=== PATIENT | male | born 1960 | race Caucasian/White ===

== ENCOUNTER 2017-11-13 17:14 | Observation (INO) | payer OTHER ==
[~2017-11-13] VITALS: Ht 182.9 cm; Wt 81.6 kg
[~2017-11-13 17:14] MED LIST: AMOXICILLIN875 MG PO; AUGMENTIN 875-1 EACH PO; CORTISPORIN-TC10 ML AD; FIORICET 325 MG1 TAB PO; MOTRIN600 MG PO
--- NOTE | 2017-11-13 20:06 | ED GI/GU/ABDOMINAL COMPLAINT ---
History of Present Illness General Chief Complaint: General Adult Stated Complaint: RIGHT SIDE PAIN SINCE YESTERDAY Source: patient Exam Limitations: language barrier Vital Signs & Intake/Output Vital Signs & Intake/Output Vital Signs Date Time Temp Pulse Resp B/P B/P Pulse O2 O2 Flow FiO2 Mean Ox Delivery Rate 11/14 2043 Room Air 11/13 1736 97.1 84 18 96 Room Air Allergies Coded Allergies: NO KNOWN ALLERGIES (10/16/15) Triage Note: 57M AMHARIC AND SUDANESE SPEAKING ONLY, REQUIRES TRANSLATION, SEEKING EVAL FOR RLQ AND ABDOMINAL PAIN SINCE LAST NIGHT WITH TWO EPISODES OF VOMITING, DENIES DIARRHEA, AND INTERMITTENT HEADACHES. AFEBRILE. -CP/SOB/PALP. REPORTS EATING GU[place]EMALAN FOOD PRIOR TO ONSET OF SYMPTOMS Triage Nurses Notes Reviewed? yes Onset: Gradual Duration: constant Timing: recent history Severity Numbers: 7 HPI: Patient is a 57-year-old male with a unremarkable past medical history who is an Ecuadorean speaking only which history is limited however it is noted by triage nurse that the son who is initially present with patient however he is gone has concerns of a gradual onset of right lower quadrant abdominal pain episodes of vomiting yesterday and persistent pain today. Please note that a different hospital employee was able to translate patient in which she states that symptoms began 2 hours last evening after eating Azeri food with patient has had multiple episodes of nausea vomiting and diarrhea no blood or melena noted diarrhea has been loose and watery patient has been unable tolerate anything by mouth. Patient has tactile fevers. Patient is concerned of appendicitis. No surgical intervention history of abdomen denies any testicular pain chest pain shortness of breath. (Ulysses Fuentes) Reconcile Medications No Known Home Medications (She ESPINOZA,Craig Vergara) Past History Travel History Traveled to [place] past 21 day No Medical History Any Pertinent Medical History? none Neurological: NONE EENT: NONE Cardiovascular: NONE Respiratory: NONE Gastrointestinal: NONE Hepatic: NONE Renal: NONE Musculoskeletal: NONE Psychiatric: NONE Endocrine: NONE Blood Disorders: NONE Cancer(s): NONE ALIGNER/Reproductive: NONE Tetanus Vaccine: 06/12/17 Surgical History Surgical History: non-contributory Psychosocial History What is your primary language Ecuadorean Tobacco Use: Cognitive Impairment Family History Hx Contributory? No (Ulysses Fuentes) Review of Systems Review of Systems Constitutional: Reports: see HPI. EENTM: Reports: no symptoms. Respiratory: Reports: no symptoms. Cardiovascular: Reports: no symptoms. GI: Reports: see HPI, abdominal pain. Genitourinary: Reports: no symptoms. Musculoskeletal: Reports: no symptoms. Skin: Reports: no symptoms. Neurological/Psychological: Reports: no symptoms. Hematologic/Endocrine: Reports: no symptoms. Immunologic/Allergic: Reports: no symptoms. All Other Systems: Reviewed and Negative (Ulysses Fuentes) Physical Exam Physical Exam General Appearance: mild distress Head: atraumatic Eyes: Bilateral: normal appearance. Ears, Nose, Throat, Mouth: moist mucous membrane Neck: normal inspection Respiratory: normal breath sounds Cardiovascular: regular rate/rhythm Gastrointestinal: normal bowel sounds, soft, RLQ PAIN Extremities: normal range of motion Neurologic/Psych: no motor/sensory deficits, awake Skin: intact, normal color Core Measures ACS in differential dx? No Sepsis Present: No Sepsis Focused Exam Completed? No (Ulysses Fuentes) Progress Differential Diagnosis: AAA, AMI, appendicitis, biliary colic, bowel obstruction , colon cancer, cholecystitis, diverticulitis, epididymitis, esophageal varices, gastritis, hepatitis, hernia, hemorrhoids, ischemic bowel, inflamm bowel dis, Nikki-Luann tear, orchitis, pancreatitis, prostatitis, peptic ulcer, PUD/GERD, perforated viscous, pyelonephritis, SBO, testicular torsion, ureterolithiasis, urinary retention, urethritis, UTI/pyelo Plan of Care: Orders Procedure Date/time Status Nothing by Mouth 11/14 B Active Saline Lock 11/[address] in observation 11/13 2249 Active Misc Message 11/13 2249 Active ED Holding Orders 11/13 225 Active Vital Signs 11/13 225 Active Code Status 11/13 225 Active EKG 11/13 224 Active Add-on Test (ER Only) 11/14 2235 Active TYPE & SCREEN (NOT X-MATCH) 11/14 2235 Active PARTIAL THROMBOPLASTIN TIME 11/13 2020 Complete PROTHROMBIN TIME 11/13 2020 Complete URINALYSIS 11/13 1738 Active LIPASE 11/13 1738 Complete LACTIC ACID 11/13 1738 Complete COMPREHENSIVE METABOLIC PANEL 11/13 1738 Complete CBC WITHOUT DIFFERENTIAL 11/13 1738 Complete Laboratory Tests 11/13/172235: PT Cancelled, INR Cancelled, APTT Cancelled 11/13/172038: Lactic Acid Cancelled 03/22/18 2021: Anion Gap 15, Estimated GFR > 60, BUN/Creatinine Ratio 27.5 H, Glucose 98, Lactic Acid 0.7, Calcium 9.3, Total Bilirubin 1.0, AST 19, ALT 36, Alkaline Phosphatase 72, Total Protein 7.9, Albumin 4.5, Globulin 3.4, Albumin/Globulin Ratio 1.3, Lipase 45, PT 11.1, INR 1.02, APTT 31, CBC w Diff MAN DIFF ORDERED, RBC 5.64, MCV 86.3, MCH 28.5, MCHC 33.0, RDW 14.1, MPV 8.1, Gran % 81.2 H, Lymphocytes % 12.6 L, Monocytes % 4.9, Eosinophils % 1.1, Basophils % 0.2, Absolute Granulocytes 15.0 H, Segmented Neutrophils 84 H, Absolute Lymphocytes 2.3, Lymphocytes 12 L, Monocytes 3, Absolute Monocytes 0.9 H, Eosinophils 1, Absolute Eosinophils 0.2, Absolute Basophils 0, Platelet Estimate ADEQUATE, Normal RBC Morphology N Patient upon initial presentation was noted to be in distress and has concerns of appendicitis, patient was given morphine and antiemetics and IV fluids which he felt improved, patient has leukocytosis CT scan currently is pending. Dr. ROTHMAN evaluated patient and CT scan and has concerns appendicitis patient will be transferred to operating room discussed disposition and plan with patient and was aware Diagnostic Imaging: Viewed by Me: CT Scan. Radiology Impression: acute abnormality Initial ED EKG: none Comments: PATIENT: JARED NIELSEN PRESENT AGE: 57 PATIENT ACCOUNT NO: [id number] : 60 LOCATION: [facility] ORDERING PHYSICIAN: Laron BERMAN SERVICE DATE: 11/13/17 EXAM TYPE: CAT - CT ABD & PELVIS W IV CONTRAST EXAMINATION: CT ABDOMEN AND PELVIS WITH CONTRAST CLINICAL INFORMATION: Right lower quadrant pain COMPARISON: None TECHNIQUE: Multidetector volumetric imaging was performed of the abdomen and pelvis following IV administration of 80 mL of Ultravist 370 intravenous contrast. Sagittal and coronal reformatted images were obtained on the technologist's workstation. FINDINGS: Lung bases are grossly clear. Upper abdomen 2 small areas of low attenuation left lobe of liver. Each measuring 2 to 3 mm. Likely incidental. Etiology is indeterminate. A larger area seen adjacent to the falciform ligament. Still small 8 mm. Etiology is not determined here. Spleen is within normal limits. Region the pancreas is unremarkable. The adrenal glands are within normal limits. Kidneys are normal appearing. Nephrographic phase. There is no bulky adenopathy here. Bowel pattern is felt to be nonobstructing. Aorta is normal in caliber. CT pelvis Abnormal right lower quadrant. Soft tissue stranding around the appendix. The appendix is measuring 1 cm. Appendicitis is suspected. There is no free fluid in the deep pelvis. IMPRESSION: Suspicious for appendicitis right lower quadrant as described. DICTATED BY: Lc Shin MD DATE/TIME DICTATED:11/13/172234 TEST GRADER:SYLVESTER DATE/TIME TRANSCRIBED:11/13/172234 (Ulysses Fuentes) Departure Departure Disposition: STILL A PATIENT Condition: Stable Clinical Impression Primary Impression: Appendicitis Referrals: Patient Has No Primary Care Dr (PCP/Family) Departure Forms: Customer Survey General Discharge Information OR/GI Note Spoke With: Hi Rothman DO ED Treatment Decision: JARED NIELSEN requires urgent operative management or an emergent procedure that cannot be performed in the Emergency Room setting. Transport To: [facility] (Ulysses Fuentes) Departure Prescriptions: Current Visit Scripts No Known Home Medications PA/CENTRAL SCHEDULER Co-Sign Statement Statement: ED Attending supervision documentation- [X] I saw and evaluated the patient. I have also reviewed all the pertinent lab results and diagnostic results. I agree with the findings and the plan of care as documented in the PA's/CENTRAL SCHEDULER's documentation. [] I have reviewed the ED Record and agree with the PA's/CENTRAL SCHEDULER's documentation. [] Additions or exceptions (if any) to the PAs/CENTRAL SCHEDULER's note and plan are summarized below: [] (She ESPINOZA,Craig Vergara) Critical Care Note Critical Care Note Critical Care Time: 30-74 min (Ulysses Fuentes)
[2017-11-13 20:30] LABS: ABSOLUTE BASOPHIL COUNT 0 /CUMM (0.0-0.2); ABSOLUTE EOSINOPHIL COUNT 0.2 /CUMM (0.0-0.7); ABSOLUTE LYMPH COUNT 2.3 /CUMM (1.2-3.4); ABSOLUTE MONOCYTE COUNT 0.9 /CUMM (0.10-0.60); BASOPHIL % 0.2 % (0.0-2.0); EOSINOPHIL % 1.1 % (0-5); GRANULOCYTE % 81.2 % (42.2-75.2); HEMATOCRIT 48.7 % (42-52); MEAN CORPUSCULAR HGB 28.5 PG (27.0-31.0); MEAN CORPUSCULAR VOLUME 86.3 FL (80.0-94.0); MEAN PLATELET VOLUME 8.1 FL (7.4-10.4); PLATELET COUNT 230 /CUMM (130-400); RBC DISTRIBUTION WIDTH 14.1 % (11.5-14.5); RED BLOOD CELL CT 5.64 /CUMM (4.70-6.10); WHITE BLOOD CELL COUNT 18.5 /CUMM (4.8-10.8)
--- NOTE | 2017-11-13 22:41 | CT SCAN REPORT ---
EXAMINATION: CT ABDOMEN AND PELVIS WITH CONTRAST CLINICAL INFORMATION: Right lower quadrant pain COMPARISON: None TECHNIQUE: Multidetector volumetric imaging was performed of the abdomen and pelvis following IV administration of 80 mL of Ultravist 370 intravenous contrast. Sagittal and coronal reformatted images were obtained on the technologist's workstation. FINDINGS: Lung bases are grossly clear. Upper abdomen 2 small areas of low attenuation left lobe of liver. Each measuring 2 to 3 mm. Likely incidental. Etiology is indeterminate. A larger area seen adjacent to the falciform ligament. Still small 8 mm. Etiology is not determined here. Spleen is within normal limits. Region the pancreas is unremarkable. The adrenal glands are within normal limits. Kidneys are normal appearing. Nephrographic phase. There is no bulky adenopathy here. Bowel pattern is felt to be nonobstructing. Aorta is normal in caliber. CT pelvis Abnormal right lower quadrant. Soft tissue stranding around the appendix. The appendix is measuring 1 cm. Appendicitis is suspected. There is no free fluid in the deep pelvis. IMPRESSION: Suspicious for appendicitis right lower quadrant as described.
--- NOTE | 2017-11-13 22:45 | History & Physical Pre-Op ---
General Information and HPI MD Statement: I have seen and personally examined JARED NIELSEN and documented this H&P. The patient is a 57 year old M who presented with a patient stated chief complaint of []. History of Present Illness: 57-year-old male presented to the emergency room with abdominal pain. Patient states the pain started last night after eating some Ukrainian food. Patient with episodes of nausea and vomiting and diarrhea. Pain worsened throughout the course of the day and patient presented to the emergency room. Currently the patient still complaining of right lower quadrant pain. Patient has not had anything to eat today because of the vomiting. 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 Tetanus Vaccine: 06/12/17 Surgical History Pertinent Surgical History: non-contributory Past Family/Social History Psychosocial History Smoking Status: Unknown If Ever Smoked ETOH Use: occasional use Illicit Drug Use: denies illicit drug use Review of Systems Review of Systems: All negative aside for the above mentioned pertinent positives Exam & Diagnostic Data Physical Exam General Appearance Alert, Oriented X3, No Acute Distress Neck Supple Cardiovascular Normal S1, Normal S2 Lungs Clear to Auscultation, Normal Air Movement Abdomen Soft (RLQ Tenderness) Neurological Normal Speech, Sensation Intact, Cranial Nerves 3-12 NL Extremities No Edema, No Tenderness/Swelling Last 24 Hrs of Labs/Gelacio: Laboratory Tests 11/13/172038: Lactic Acid Cancelled 11/13/172020: Anion Gap 15, Estimated GFR > 60, BUN/Creatinine Ratio 27.5 H, Glucose 98, Lactic Acid 0.7, Calcium 9.3, Total Bilirubin 1.0, AST 19, ALT 36, Alkaline Phosphatase 72, Total Protein 7.9, Albumin 4.5, Globulin 3.4, Albumin/Globulin Ratio 1.3, Lipase 45, CBC w Diff MAN DIFF ORDERED, RBC 5.64, MCV 86.3, MCH 28.5, MCHC 33.0, RDW 14.1, MPV 8.1, Gran % 81.2 H, Lymphocytes % 12.6 L, Monocytes % 4.9, Eosinophils % 1.1, Basophils % 0.2, Absolute Granulocytes 15.0 H, Segmented Neutrophils 84 H, Absolute Lymphocytes 2.3, Lymphocytes 12 L, Monocytes 3, Absolute Monocytes 0.9 H, Eosinophils 1, Absolute Eosinophils 0.2, Absolute Basophils 0, Platelet Estimate ADEQUATE, Normal RBC Morphology N Diagnostic Data Other Results CT scan of the abdomen and pelvis consistent with acute appendicitis. Assessment/Plan Assessment/Plan: 57-year-old male with acute appendicitis Nothing by mouth/IV fluids/IV antibiotics Plan for laparoscopic appendectomy tonight Discussed with patient and the emergency room staff As Ranked By This Provider Problem List: 1. Appendicitis Attending MD Review Statement Attending Statement Attending MD Statement: examined this patient, reviewed EMR data (avail), reviewed images
[2017-11-13 22:56] LABS: PT 11.1 SEC (9.4-12.5)
[2017-11-13 22:57] LABS: PTT 31 SEC (25-37)
--- NOTE | 2017-11-14 00:15 | Operative Report ---
Operative/Inv Procedure Report Surgery Date: 11/14/17 Name of Procedure: Laparoscopic appendectomy Pre-Operative Diagnosis: Acute appendicitis Post-Operative Diagnosis: Same Estimated Blood Loss: less than 50ml Surgeon/Air Intelligence Specialist: Hi Vance Anesthesia: general endotracheal tube IV Fluids: 1000 cc Drains: None Specimens: Appendix Complications: None Condition: Stable Operative Indication: This is a 57-year-old male that presented to the emergency room with abdominal pain. After appropriate workup was completed the patient was diagnosed with acute appendicitis. A laparoscopic possible open appendectomy was discussed in detail. All risks including but not limited to bleeding, infection, and injury to surrounding bowel were discussed in detail. The patient understood everything and decided to proceed. Operative/Procedure Note Note: The patient was brought to the operating room and placed on the table in supine position. Venodyne stockings were placed and adequate general endotracheal anesthesia was obtained. The patient was prepped and draped in standard surgical fashion. Began the procedure by making a 2 cm transverse incision in the infraumbilical crease. Incision was carried down to the fascia. Once the fascia was clearly visualized it was picked up between 2 Marilyn clamps and divided in the midline. Once we entered the peritoneum 2 stay 0 Vicryl sutures were placed on each side and a 12 mm blunt port was inserted. The abdominal cavity was insufflated to 15 mmHg. And a 10 mm 30 laparoscope was introduced. Upon initial examination no obvious gross pathology was seen, some hyperemia and inflammatory reaction was noted in the right lower quadrant. Accessory trocars were placed, both 5 mm, one in the left lower quadrant and one suprapubic. Ascending colon was identified and traced proximally, terminal ileum was identified, and we did note the appendix coursing in a retrocecal fashion. The base of the appendix was identified and appeared healthy. Distal appendix was markedly inflamed and thickened and adhered to the sidewall and to the omentum. Using blunt dissection and harmonic scalpel the appendix was carefully dissected away from surrounding structures. Once the appendix was away from the omentum and the sidewall the mesoappendix was divided using Harmonic scalpel maintaining hemostasis until the appendiceal base was clearly visualized and freely up in the air. At that point we switched to a 5 mm laparoscope and a 45 mm quach Endo ALAINA load was inserted and the base was transected. The appendix was placed in an Endobag and removed through the umbilical trocar site. The abdominal cavity was reinsufflated and we switched back to a 10 mm laparoscope. Staple line was examined and some bleeding was noted, that was controlled using endoclips. No other abnormalities were noted. The pelvis and the right lower quadrant were irrigated until clear. All ports were removed under direct visualization, no obvious bleeding was noted. The umbilical trocar site was closed using 0 Vicryl suture. The skin was closed using 4-0 Monocryl. Steri-Strips and dressings were placed. The patient was successfully extubated and transferred to the recovery room in stable condition. The patient tolerated procedure well with no complications. Findings: Acute auppurative appendicitis, non-perforated
--- NOTE | 2017-11-14 01:08 | Admission Core Measures ---
Acute Coronary Syndrome (CM) ACS Core Measures Acute Coronary Syndrome Diagnosis No Congestive Heart Failure (NEW) CHF Core Measures Congestive Heart Failure Diagnosis No Cerebrovascular Accident (NEW) CVA Core Measures CVA/TIA Diagnosis No Venous Thromboembolism VTE Core Gisella (View Protocol) VTE Risk Factors Surgery No Mechanical VTE Prophylaxis d/t N/A MechProphylax Ordered No VTE Pharm Prophylaxis d/t NA PharmProphylax ordered Problem List As ranked by this Provider includes Assessment & Plan 1. Appendicitis HOME MEDS Home Med List No Known Home Medications
[2017-11-14 01:40] VITALS: BP 130/70
[2017-11-14 06:00] VITALS: BP 120/64
--- NOTE | 2017-11-14 07:53 | Patient Discharge Instructions ---
Discharge Instructions General Discharge Information You were seen/treated for: Acute appendicitis You had these procedures: Surgery Date: 11/14/17 Name of Procedure: Laparoscopic appendectomy Watch for these problems: fever>101.3, increased pain, redness/swelling/drainage, shortness of breath, chest pains, dizziness No bath, but you may shower: Yes Other wound care: ok to remove outer dressings. leave white steri strips in place. keep incisions clean & dry. ok to shower, but no pools/baths for 2 weeks. Diet Continue normal diet: Yes Recommended Diet: Regular Activity Full Activity/No Limits: No Activity Self Limited: Yes Pounds, do NOT lift more than: 10 Other activity limits: no heavy lifting. no strenuous activity. Acute Coronary Syndrome Inclusion Criteria At DC or during hospital stay patient has or had the following: ACS DIAGNOSIS No Discharge Core Measures Meds if any: Prescribed or Continued at Discharge Meds if any: NOT Prescribed or Continued at Discharge Congestive Heart Failure Inclusion Criteria At DC or during hospital stay patient has or had the following: CHF DIAGNOSIS No Discharge Core Measures Meds if any: Prescribed or Continued at Discharge Meds if any: NOT Prescribed or Continued at Discharge Cerebrovascular accident Inclusion Criteria At DC or during hospital stay patient has or had the following: CVA/TIA Diagnosis No Discharge Core Measures Meds if any: Prescribed or Continued at Discharge Meds if any: NOT Prescribed or Continued at Discharge Venous thromboembolism Inclusion Criteria VTE Diagnosis No VTE Type NONE VTE Confirmed by (Test) NONE Discharge Core Measures - Per Current guidelines, there needs to be overlap - treatment for the first 5 days of Warfarin therapy. - If discharged on Warfarin prior to 5 days of - overlap therapy, the patient will need to be - assessed for post discharge needs including - *Post discharge parental anticoagulation - *Warfarin and/or parental anticoagulation education - *Follow up date to check INR post discharge At least 5 days overlap therapy as Inpatient No Meds if any: Prescribed or Continued at Discharge Note: Overlap Therapy is Warfarin and Anticoagulant Meds if any: NOT Prescribed or Continued at Discharge
[2017-11-14] MEDS ORDERED: PERCOCET 5-3251 EACH PO (07:55)
--- NOTE | 2017-11-14 08:00 | Surg Short-stay <48hrs Dis Sum ---
Visit Information Visit Dates Admission Date: 11/14/17 Discharge Date: 11/14/17 Surgical Short Stay DC Summary Admission Diagnosis: Acute appendicitis Final Diagnosis: same as above, s/p Surgery Date: 11/14/17 Name of Procedure: Laparoscopic appendectomy Procedure(s): Surgery Date: 11/14/17 Name of Procedure: Laparoscopic appendectomy Summary/Significant Findings: Presented to the ED 11/13/17 with abdominal pain, and imaging showing acute appendicitis. He was given unasyn iv and taken to the OR for a laparoscopic appendectomy on 11/14/17. He was discharged to home once tolerating diet, and pain controlled. Condition at Discharge: stable Discharge Disposition: home or self care Discharge instructions provided to patient/family: Yes Post discharge follow-up plan: follow up with in 1-2 weeks
--- NOTE | 2017-11-14 08:14 | PN- General Surgery ---
Subjective Subjective: No complaints. Tolerating diet. No nausea. Denies dizziness. No shortness of breath. No chest pains. Objective Vital Signs and I&Os Vital Signs Date Time Temp Pulse Resp B/P B/P Pulse O2 O2 Flow FiO2 Mean Ox Delivery Rate 11/14 0140 98.4 78 20 130/70 95 Room Air 11/134 Room Air 11/13 1736 97.1 84 18 96 Room Air Physical Exam: General - alert & oriented x 3. comfortable. no acute distress. Lungs - clear bilaterally. no w/r/r. Cardiac - s1s2. reg. Abdomen - soft. dressings c/d/i. expected mauro-incisional tenderness. Extremities - warm bilaterally. no c/c/e. calves soft and nontender b/l. Current Medications: Current Medications Sig/Kuldip Start time Last Medication Dose Route Stop Time Status Admin Acetaminophen 650 MG Q6P PRN 11/14 114 AC PO Ampicillin Sodium/ 3,000 MG ONCE ONE 11/14 08 AC Sulbactam Sodium IV 11/14 0829 Sodium Chloride 100 ML Ampicillin Sodium/ 0 .STK-MED ONE 11/13 2301 DC Sulbactam Sodium .ROUTE Ampicillin Sodium/ 1,500 MG ONCE ONE 11/13 2245 DC 11/13 Sulbactam Sodium IV 11/13 2314 2303 Sodium Chloride 100 ML Dextrose/Sodium 1,000 ML .[id number] 11/14 114 AC Chloride IV Heparin Sodium 5,000 UNIT Q8 11/14 06 AC 11/14 (Porcine) SC 0559 Morphine Sulfate 2 MG Q3P PRN 11/14 114 AC 11/14 IV 0602 Morphine Sulfate 0 .STK-MED ONE 11/14 2135 DC .ROUTE Morphine Sulfate 6 MG ONCE ONE 11/13 2114 DC 11/13 IV 11/13 Ondansetron HCl 4 MG Q8P PRN 11/14 114 AC IV Ondansetron HCl 0 .STK-MED ONE 11/13 2134 DC .ROUTE Ondansetron HCl 4 MG ONCE ONE 11/13 2114 DC 11/13 IV 11/13 Oxycodone/ 1 TAB Q4-6 PRN PRN 11/14 114 AC Acetaminophen PO Oxycodone/ 2 TAB Q4-6 PRN PRN 11/14 114 AC Acetaminophen PO Sodium Chloride 1,000 ML BOLUS ONE 11/13 2114 DC 11/13 IV 11/13 Results Last 48 Hours of Labs: Laboratory Tests 11/13 Chemistry Lactic Acid Cancelled Coagulation PT Cancelled INR Cancelled APTT Cancelled 11/13 2020 Chemistry Sodium (137 - 145 mmol/L) 142 Potassium (3.5 - 5.1 mmol/L) 4.0 Chloride (98 - 107 mmol/L) 102 Carbon Dioxide (22 - 30 mmol/L) 24 Anion Gap (5 - 16) 15 BUN (9 - 20 mg/dL) 22 H Creatinine (0.7 - 1.2 mg/dL) 0.8 Estimated GFR (>60 ml/min) > 60 BUN/Creatinine Ratio (7 - 25 %) 27.5 H Glucose (65 - 99 mg/dL) 98 Lactic Acid (0.7 - 2.1 mmol/L) 0.7 Calcium (8.4 - 10.2 mg/dL) 9.3 Total Bilirubin (0.2 - 1.3 mg/dL) 1.0 AST (17 - 59 U/L) 19 ALT (21 - 72 U/L) 36 Alkaline Phosphatase (< 127 U/L) 72 Total Protein (6.3 - 8.2 g/dL) 7.9 Albumin (3.5 - 5.0 g/dL) 4.5 Globulin (1.9 - 4.2 gm/dL) 3.4 Albumin/Globulin Ratio (1.1 - 2.2 %) 1.3 Lipase (23 - 300 U/L) 45 Coagulation PT (9.4 - 12.5 SEC) 11.1 INR (0.90 - 1.17) 1.02 APTT (25 - 37 SEC) 31 Hematology CBC w Diff MAN DIFF ORDERED WBC (4.8 - 10.8 /CUMM) 18.5 H RBC (4.70 - 6.10 /CUMM) 5.64 Hgb (14.0 - 18.0 G/DL) 16.1 Hct (42 - 52 %) 48.7 MCV (80.0 - 94.0 FL) 86.3 MCH (27.0 - 31.0 PG) 28.5 MCHC (33.0 - 37.0 G/DL) 33.0 RDW (11.5 - 14.5 %) 14.1 Plt Count (130 - 400 /CUMM) 230 MPV (7.4 - 10.4 FL) 8.1 Gran % (42.2 - 75.2 %) 81.2 H Lymphocytes % (20.5 - 51.1 %) 12.6 L Monocytes % (1.7 - 9.3 %) 4.9 Eosinophils % (0 - 5 %) 1.1 Basophils % (0.0 - 2.0 %) 0.2 Absolute Granulocytes (1.4 - 6.5 /CUMM) 15.0 H Segmented Neutrophils (42.2 - 75.2 %) 84 H Absolute Lymphocytes (1.2 - 3.4 /CUMM) 2.3 Lymphocytes (20.5 - 51.1 %) 12 L Monocytes (1.7 - 9.3 %) 3 Absolute Monocytes (0.10 - 0.60 /CUMM) 0.9 H Eosinophils (0 - 5.0 %) 1 Absolute Eosinophils (0.0 - 0.7 /CUMM) 0.2 Absolute Basophils (0.0 - 0.2 /CUMM) 0 Platelet Estimate (ADEQUATE) ADEQUATE Normal RBC Morphology N Assessment/Plan Assessment/Plan This 57 year old male is POD#0 s/p lap appendectomy for acute appendicitis advance diet as tolerated unasyn x 1 this morning, post-op percocet prn pain oob/ambulation hep sc - dvt ppx observation status, given likely d/c home today will d/w Core Measures Venous Thromboembolism VTE Risk Factors Surgery No Mechanical VTE Prophylaxis d/t N/A MechProphylax Ordered No VTE Pharm Prophylaxis d/t NA PharmProphylax ordered
== END 2017-11-14 11:40 ==
LOC: ERH 17:14 → ER-OR 17:41 → ERH 17:41 → CRI 11-14 00:45 → 2NB 11-14 00:45 → ENPENDDIS 11-14 08:57 → 2NB 11-14 11:40
PROVIDERS: Physician Assistant Medical
DX: K35.80 Unspecified acute appendicitis (principal); F17.200 Nicotine dependence, unspecified, uncomplicated
CPT/HCPCS: 36592; 74177; 88304; 93005; 93010; 96372; 96374; 96375; 96376; G0378; J0690; J1644; J2405; J7042